=== PATIENT | male | born 1955 | race Hispanic/Latino ===

== ENCOUNTER 2022-02-20 06:30 | Day surgery (SDC) | payer OTHER ==
[2022-02-17 10:42] LABS: BASOPHILS % (AUTO) 0.4 % (0.0-5.0); EOSINOPHILS % (AUTO) 1.5 % (0.0-8.0); HEMATOCRIT 45.6 % (42-54); LYMPHOCYTES % (AUTO) 30.1 % (21.0-51.0); MEAN CORPUSCULAR HEMOGLOBIN 32.1 pg (27.0-33.0); MEAN CORPUSCULAR HGB CONC 33.6 g/dL (32.0-36.0); MEAN CORPUSCULAR VOLUME 95.8 fL (79-99); MONOCYTES % (AUTO) 8.3 % (3.0-13.0); NEUTROPHILS % (AUTO) 59.6 % (40.0-77.0); PLATELET COUNT (AUTO) 280 K/uL (130-400); RED BLOOD CELL COUNT(AUTO) 4.76 MIL/uL (4.50-6.20); RED CELL DISTRIBUTION WIDTH 14.6 % (11.0-15.5); WHITE BLOOD COUNT (AUTO) 7.1 K/uL (4.8-10.8)
[2022-02-17 10:57] LABS: CREATININE 1.1 mg/dL (0.5-1.5); POTASSIUM 4.2 mmol/L (3.5-5.1)
[2022-02-17 11:29] VITALS: BP 158/89
[~2022-02-20] VITALS: Ht 185.4 cm; Wt 124.6 kg
[2022-02-20] VITALS (18 sets, daily range): BP systolic 125–151; BP diastolic 72–95
[~2022-02-20 06:30] MED LIST: 0.9%NACL 1000ML 1,000 ML IV ONE; APIX2.5T PO; CEFAZOLIN SODIUM 1 GM VIAL ONE; CYAN-52 PO; EMPA25TA PO; HYDR25TA PO; LOSA50TA64 PO; METF-446 PO; PIOG30TA70 PO; ROSU40TA21 PO; cholecalciferol PO
[2022-02-20] MEDS ORDERED: ONDANSETRON 4MG INJ ONE (07:26)
[2022-02-20] MEDS ORDERED: LIDOCAINE PF 100MG/5ML (2%) SYRINGE 5ML ONE (07:26)
[2022-02-20] MEDS ORDERED: PROPOFOL 10 MG/ML 20ML VIAL IV ONE ×2 (07:26→09:07)
[2022-02-20] MEDS ORDERED: SUCCINYLCHOLINE CHLORIDE 20 MG/ML 10 ML VIAL ONE (07:26)
[2022-02-20] MEDS ORDERED: DEXAMETHASONE SOD PHOSPHATE 10MG/ML 1ML VIAL ONE (07:26)
[2022-02-20] MEDS ORDERED: NEOSTIGMINE 5MG/5ML SYR IV ONE (07:26)
[2022-02-20] MEDS ORDERED: GLYCOPYRROLATE 1 MG/5 ML SYRINGE ONE (07:26)
[2022-02-20] MEDS ORDERED: MIDAZOLAM HCL 1 MG/ML 2ML VIAL ONE (07:27)
[2022-02-20] MEDS ORDERED: FENTANYL CITRATE PF 50 MCG/1 ML 2ML VIAL ONE ×2 (07:27→09:15)
[2022-02-20] MEDS ORDERED: ROCURONIUM 10MG/1ML SYR 10 MG/ML ML ONE (07:27)
[2022-02-20] MEDS ORDERED: INSLAN SQ (08:12)
[2022-02-20] MEDS ORDERED: CEFAZOLIN SODIUM 1 GM VIAL ONE (08:17)
[2022-02-20] MEDS ORDERED: CEFAZOLIN SODIUM 3 GM VIAL IV ONE (09:20)
[2022-02-20] MEDS ORDERED: ATROPINE 1MG SYG IVP ONE (09:28)
[2022-02-20] MEDS ORDERED: ACET-2079 PO (09:59)
[2022-02-20] MEDS ORDERED: IBUP-2077 PO (09:59)
[2022-02-20] MEDS ORDERED: CEPH500B PO (09:59)
== END 2022-02-20 12:00 | disposition home or self-care (01) ==
LOC: DAH 06:30
PROVIDERS: ATTEND Orthopaedic Surgery
DX: S83.231A Complex tear of medial meniscus, current injury, right knee, initial encounter (principal); M17.11 Unilateral primary osteoarthritis, right knee; G89.29 Other chronic pain; I10 Essential (primary) hypertension; E11.51 Type 2 diabetes mellitus with diabetic peripheral angiopathy without gangrene; K21.9 Gastro-esophageal reflux disease without esophagitis; E78.5 Hyperlipidemia, unspecified; Z90.49 Acquired absence of other specified parts of digestive tract; Z98.890 Other specified postprocedural states; Z82.49 Family history of ischemic heart disease and other diseases of the circulatory system; Z83.3 Family history of diabetes mellitus; Z80.42 Family history of malignant neoplasm of prostate; Z83.438 Family history of other disorder of lipoprotein metabolism and other lipidemia; Z79.899 Other long term (current) drug therapy; Z87.891 Personal history of nicotine dependence
CPT/HCPCS: 29881; 36415; 80048; 82948 ×2; 85025; 87635; A4215; A4221; A4222; A4223; A4649 ×2; A4663; A4930 ×2; A6223; C9803; J0330; J0461; J0690 ×2; J1100; J2001; J2250; J2405; J2704 ×2; J2710; J3010 ×2; J3490; J7030; J7120